=== PATIENT | male | born 1985 | race American Indian/Alaskan Native ===

== ENCOUNTER 2016-05-25 05:54 | Emergency (ER) | payer OTHER ==
[2016-05-25 07:04] LABS: Basophils % (Auto) 0.5 % (0.0-1.8); Eosinophils % (Auto) 8.6 % (0.0-4.3); Hematocrit 38.1 % (35.5-45.6); Hemoglobin 12.1 gm/dl (11.8-15.2); Mean Corpuscular HGB Conc 32 % (32-34); Mean Corpuscular Hemoglobin 27 pg (28-32); Mean Corpuscular Volume 85 fl (84-94); Platelet Count 181 K/mm3 (140-440); Red Blood Count 4.49 M/mm3 (3.65-5.03); Red Cell Distribution Width 13.9 % (13.2-15.2); White Blood Count 5.8 K/mm3 (4.5-11.0)
[2016-05-25 07:19] LABS: INR 0.94 (0.87-1.13)
[2016-05-25 07:20] LABS: Partial Thromboplastin Time 28.7 Sec. (24.2-36.6)
[2016-05-25 07:25] LABS: Anion Gap 15 mmol/L; Blood Urea Nitrogen 14 mg/dL (9-20); Carbon Dioxide 27 mmol/L (22-30); Chloride 103.5 mmol/L (98-107); Glucose 107 mg/dL (75-100); Potassium 4.4 mmol/L (3.6-5.0); Sodium 141 mmol/L (137-145)
--- NOTE | 2016-05-25 13:14 | Emergency Department Report ---
ED Chest Pain HPI - General Chief Complaint: Chest Pain Stated Complaint: LEG/CHEST PAIN Time Seen by Provider: 05/25/16 12:45 Source: patient Mode of arrival: Ambulatory Limitations: No Limitations - History of Present Illness Initial Comments: 31-year-old male presents to the emergency department complaining of chest pain. Patient reports the onset of left lower chest pain at approximately 1 AM this morning. Nursing notes state the pain has been present for 2 days. Patient describes the pain as sharp and tight feeling. Pain does not radiate. He denies associated nausea, vomiting, diaphoresis, dizziness, or difficulty breathing. Nursing notes show the patient was complaining of shortness of breath with exertion. Patient is also complaining of bilateral leg swelling for the past 2 days. There are no other complaints. -: Gradual, During the night Time: 01:00 Onset: during rest Pain Location: left chest Pain Radiation: none Severity: moderate Severity scale (0 -10): 4 Quality: tightness, sharp Consistency: now resolved Improves With: nothing Worsens With: nothing re: denies: nausea, vomting, diaphoresis, dyspnea Other Symptoms: leg swelling Treatments Prior to Arrival: none Aspirin use within the Past 7 Days: (0) No - Related Data Previous Rx's Medication Instructions Recorded Last Taken Type Furosemide [Lasix] 20 mg PO QDAY #30 tablet 05/25/16 Unknown Rx Allergies Allergy/AdvReac Type Severity Reaction Status Date / Time No Known Allergies Allergy Verified 11/09/14 05:11 LOU score - Lou Score Age > 65: (0) No Aspirin use within the Past 7 Days: (0) No 3 or more CAD Risk Factors: (0) No 2 or more Angina events in past 24 hrs: (0) No Known CAD with more than 50% Stenosis: (0) No Elevated Cardiac Markers: (0) No ST Deviation Greater than 0.5mm: (0) No LOU Score: 0 ED Review of Systems ROS: Stated complaint: LEG/CHEST PAIN Other details as noted in HPI Comment: All other systems reviewed and negative Cardiovascular: chest pain, edema ED Past Medical Hx - Past Medical History Previous Medical History?: Yes Hx Asthma: Yes Additional medical history: heart mumur - Surgical History Past Surgical History?: Yes Additional Surgical History: hernia repair x2 - Family History Family history: no significant - Social History Smoking Status: Never Smoker Substance Use Type: Alcohol - Medications Home Medications: Home Medications Medication Instructions Recorded Confirmed Last Taken Type Furosemide [Lasix] 20 mg PO QDAY #30 tablet 05/25/16 Unknown Rx ED Physical Exam - General Limitations: No Limitations General appearance: alert, in no apparent distress - Head Head exam: Present: atraumatic, normocephalic - Eye Eye exam: Present: normal appearance, PERRL, EOMI - ENT ENT exam: Present: normal exam, normal orophraynx, mucous membranes moist - Neck Neck exam: Present: normal inspection, full ROM. Absent: tenderness - Respiratory Respiratory exam: Present: normal lung sounds bilaterally. Absent: respiratory distress, chest wall tenderness - Cardiovascular Cardiovascular Exam: Present: regular rate, normal rhythm, normal heart sounds - GI/Abdominal GI/Abdominal exam: Present: soft, normal bowel sounds. Absent: distended, tenderness - Extremities Exam Extremities exam: Present: normal inspection, full ROM. Absent: tenderness - Back Exam Back exam: Present: normal inspection, full ROM. Absent: tenderness - Neurological Exam Neurological exam: Present: alert, oriented X3. Absent: motor sensory deficit - Skin Skin exam: Present: warm, dry, intact ED Course Vital Signs 05/25/16 05/25/16 05/25/16 05:58 12:53 13:04 Temperature 97.5 F L 97.6 F Pulse Rate 82 60 60 Respiratory 20 18 Rate Blood Pressure 120/75 129/83 [Right] O2 Sat by Pulse 99 99 Oximetry ED Medical Decision Making - Lab Data Result diagrams: 05/25/16 06:50 05/25/16 06:50 - EKG Data -: EKG Interpreted by Ct EKG shows normal: sinus rhythm, axis, intervals Rate: normal - EKG Data When compared to previous EKG there are: no significant change Interpretation: unchanged when compared t (11/09/2014), LVH (with early repolarization) - Medical Decision Making Lab results reviewed and discussed with the patient. Patient has remained chest pain-free in the emergency department. He has a nonischemic ECG and has had 3 negative troponins. Patient will be discharged home to follow up with a primary care physician. - Differential Diagnosis atypical chest pain, chest wall pain, CHF, renal failure, peripheral edema Critical care attestation.: If time is entered above; I have spent that time in minutes in the direct care of this critically ill patient, excluding procedure time. ED Disposition Clinical Impression: Non-cardiac chest pain, Peripheral edema Disposition: DISCHARGED TO HOME OR SELFCARE Is pt being admited?: No Condition: Stable Instructions: Chest Pain (ED), Leg Edema (ED) Prescriptions: Furosemide [Lasix] 20 mg PO QDAY #30 tablet Referrals: SHENG LEWIS MD [Staff Physician] - 3-5 Days Time of Disposition: 14:08
[2016-05-25 14:26] VITALS: BP 129/85
== END 2016-05-25 14:27 | disposition home or self-care (01) ==
LOC: ED 05:54
DX: R07.89 Other chest pain (principal); R60.9 Edema, unspecified; J45.909 Unspecified asthma, uncomplicated
CPT/HCPCS: 36415; 80048; 83880; 84484; 85025; 85610; 85730; 93005; 93010; 99284

== ENCOUNTER 2021-05-24 15:53 | Emergency (ER) | payer SELFPAY ==
[2021-05-24 16:54] VITALS: BP 143/79
--- NOTE | 2021-05-24 17:19 | Emergency Department Report ---
ED Recheck HPI - General Chief Complaint: High BP Stated Complaint: HBP Time Seen by Provider: 05/24/21 17:15 Source: patient Mode of arrival: Ambulatory Limitations: No Limitations - History of Present Illness Initial Comments: Ludin is a 36-year-old male that comes to the emergency room because his job sent him for hypertension. They took his blood pressure twice and it was 169/84 and then they repeated it 150/89. On patient arrival to the ER patient's blood pressure was 143/79. He has no history of hypertension. Patient is on no medications. Patient has no chest pain. Shortness of breath. Edema. Abdominal pain. Back pain. Patient has no headache. Patient is ambulatory, [id number] and neuro intact on exam - Related Data Home Medications Medication Instructions Recorded Confirmed Last Taken No Known Home Medications [No 11/20/17 11/20/17 Unknown Reported Home Medications] Allergies Allergy/AdvReac Type Severity Reaction Status Date / Time No Known Allergies Allergy Verified 11/09/14 05:11 ED Review of Systems ROS: Stated complaint: HBP Other details as noted in HPI Comment: All other systems reviewed and negative ED Past Medical Hx - Past Medical History Previous Medical History?: Yes Hx Asthma: Yes Additional medical history: heart mumur - Surgical History Past Surgical History?: Yes Additional Surgical History: hernia repair x2 - Family History Family history: no significant - Social History Smoking Status: Never Smoker Substance Use Type: None - Medications Home Medications: Home Medications Medication Instructions Recorded Confirmed Last Taken Type No Known Home Medications [No 11/20/17 11/20/17 Unknown History Reported Home Medications] ED Physical Exam - General Limitations: No Limitations General appearance: alert, in no apparent distress - Head Head exam: Present: atraumatic, normocephalic - Eye Eye exam: Present: normal appearance - ENT ENT exam: Present: mucous membranes moist - Neck Neck exam: Present: normal inspection - Respiratory Respiratory exam: Present: normal lung sounds bilaterally. Absent: respiratory distress - Cardiovascular Cardiovascular Exam: Present: regular rate, normal rhythm. Absent: systolic murmur, diastolic murmur, rubs, gallop - GI/Abdominal GI/Abdominal exam: Present: soft, normal bowel sounds - Rectal Rectal exam: Present: deferred - Extremities Exam Extremities exam: Present: normal inspection - Back Exam Back exam: Present: normal inspection - Neurological Exam Neurological exam: Present: alert, oriented X3 - Psychiatric Psychiatric exam: Present: normal affect, normal mood - Skin Skin exam: Present: warm, dry, intact, normal color. Absent: rash ED Course Vital Signs 05/24/21 16:51 Temperature 97.8 F Pulse Rate 66 Respiratory 20 Rate Blood Pressure 143/79 [Right] O2 Sat by Pulse 96 Oximetry ED Recheck MDM - Core Measures Measure Exclusions: not indicated - Medical Decision Making Patient was sent to the ER by his job for hypertension. His blood pressures are nothing emergent. He has no symptoms. I have educated patient on what alarming blood pressures would be. And symptoms that we would be concerned about. Patient being discharged home with discharge plan of care including diet, activity, medications and follow-up. He verbalizes understanding. Vital Signs 05/24/21 16:51 Temperature 97.8 F Pulse Rate 66 Respiratory 20 Rate Blood Pressure 143/79 [Right] O2 Sat by Pulse 96 Oximetry Critical care attestation.: If time is entered above; I have spent that time in minutes in the direct care of this critically ill patient, excluding procedure time. ED Disposition Clinical Impression: Blood pressure check Disposition: 01 HOME / SELF CARE / HOMELESS Is pt being admited?: No Does the pt Need Aspirin: No Condition: Stable Additional Instructions: Follow-up with PCP as we discussed. He will monitor your blood pressure. Referral below Referrals: STEPHANY LOPEZ MD [Staff Physician] - 3-5 Days Forms: Work/School Release Form(ED) Time of Disposition: 17:18
== END 2021-05-24 17:20 | disposition home or self-care (01) ==
LOC: ED 15:53
DX: Z01.30 Encounter for examination of blood pressure without abnormal findings (principal); I10 Essential (primary) hypertension; J45.909 Unspecified asthma, uncomplicated
CPT/HCPCS: 99282